=== PATIENT | male | born 1970 | race Caucasian/White ===

== ENCOUNTER 2017-12-29 01:19 | Emergency (ER) | payer OTHER ==
[~2017-12-29] VITALS: Ht 180.3 cm; Wt 63.5 kg
[2017-12-29] MEDS ORDERED: ENALAPRIL MALE2.5 MG (01:31)
== END 2017-12-29 06:39 | disposition home or self-care (01) ==
LOC: ER 01:19
DX: M62.838 Other muscle spasm (principal)

== ENCOUNTER 2022-04-29 08:04 | Emergency (ER) | payer OTHER ==
[~2022-04-29] VITALS: Ht 170.2 cm; Wt 61.2 kg
[~2022-04-29 08:04] MED LIST: ENALAPRIL MALE2.5 MG
[2022-04-29] MEDS ORDERED: ENALAPRIL MALEAT5 MG PO (08:17)
[2022-04-29] MEDS ORDERED: DICLOFENAC POTA50 MG PO (11:28)
[2022-04-29] MEDS ORDERED: CYCLOBENZAPRINE10 MG PO (11:28)
== END 2022-04-29 12:40 ==
LOC: ER 08:04
DX: S39.012A Strain of muscle, fascia and tendon of lower back, initial encounter (principal); Y99.0 Civilian activity done for income or pay; Y93.89 Activity, other specified; Y92.89 Other specified places as the place of occurrence of the external cause; M62.838 Other muscle spasm; I10 Essential (primary) hypertension

== ENCOUNTER 2022-10-26 11:02 | Outpatient (CLI) | payer OTHER ==
[~2022-10-26 11:02] MED LIST changes: +CYCLOBENZAPRINE10 MG PO; +DICLOFENAC POTA50 MG PO; +ENALAPRIL MALEAT5 MG PO
== END 2022-10-26 11:18 | disposition home or self-care (01) ==
LOC: TOM 11:02
PROVIDERS: ATTEND Urology
DX: R31.29 Other microscopic hematuria (principal)

== ENCOUNTER 2023-01-02 10:21 | Outpatient (CLI) | payer OTHER | END 2023-01-02 10:31 | disposition home or self-care (01) | LOC: SONOGRAMA 10:21 | PROVIDERS: ATTEND Urology | DX: N28.1 Cyst of kidney, acquired (principal) ==